=== PATIENT | male | born 1995 | race African-American/Black ===

== ENCOUNTER 2020-12-21 19:30 | Emergency (ER) | payer OTHER ==
[2020-12-21 19:39] VITALS: BP 134/79; PULSE 76; RESP 17; TEMP 97.9
[2020-12-21] MEDS ORDERED: hydrOXYzine HCL 25 MG TAB PO STA (20:05)
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
== END 2020-12-21 20:57 | disposition home or self-care (01) ==
LOC: EC 19:30
DX: S40.862A Insect bite (nonvenomous) of left upper arm, initial encounter (principal); S40.861A Insect bite (nonvenomous) of right upper arm, initial encounter; F32.9 Major depressive disorder, single episode, unspecified; F17.200 Nicotine dependence, unspecified, uncomplicated; W57.XXXA Bitten or stung by nonvenomous insect and other nonvenomous arthropods, initial encounter
CPT/HCPCS: 99282